=== PATIENT | female | born 1980 | race Two or more races ===

== ENCOUNTER 2020-02-15 15:58 | Inpatient (IN) | payer OTHER ==
[2020-02-15 18:30] VITALS: BMI 16.7
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
[2020-02-15] MEDS ORDERED: MENTHOL/PHENOL 1 EACH UD MM PRN (20:10)
[2020-02-15] MEDS ORDERED: ACETAMINOPHEN 325 MG TABLET (FP) PO PRN ×2 (20:10)
[2020-02-15] MEDS ORDERED: MAGNESIUM HYDROX 2400MG/30ML ORAL SUSPENSION 30 ML CUP PO PRN (20:10)
[2020-02-15] MEDS ORDERED: ONDANSETRON *ODT* 4 MG TABLET SL ONE (20:10)
[2020-02-15] MEDS ORDERED: BISMUTH SUBSALICYLATE 524 MG/30 ML UD PO PRN (20:10)
[2020-02-15] MEDS ORDERED: MAG HYDROX/AL HYDROX/SIMETH 30 ML UNIT-DOSE CUP PO PRN (20:10)
[2020-02-15] MEDS ORDERED: chlordiazePOXIDE HCL 10 MG CAPSULE PO PRN (20:10)
[2020-02-15] MEDS ORDERED: METHOCARBAMOL 500 MG TABLET PO PRN (20:10)
[2020-02-15] MEDS ORDERED: MAGNESIUM CITRATE 300 ML BOTTLE PO PRN (20:10)
[2020-02-15] MEDS ORDERED: IBUPROFEN 400 MG TABLET (FP) PO PRN (20:10)
--- NOTE | 2020-02-15 23:01 | PN ---
S Progress Note Note: b/p 140/100 p- 109 o2 sat 96% on 8l nc Patient is a 39 year old transgender female with a significant past medical history of hypertension, alcohol related seizures, anemia, GERD and psych/depression, who is admitted for alcohol detox to [facility], with grand mal seizure while waiting transfer to unit fell, and hit his/her head. patient status post witnessed grand mal seizure. fell from standing position. tonic, clonic contractions noted for approx 2 min. loc noted. supportive care provided, o2 nc 911 initiated post ictal observation awake confused trauma to right side of face, hematoma, lac to right brow and cheek.bleeding from mouth client transferred to [facility] for eval.
[2020-02-16] MEDS ORDERED: chlordiazePOXIDE HCL 25 MG CAPSULE PO PRN (07:12)
[2020-02-16] MEDS ORDERED: cloNIDine HCL 0.1 MG TABLET PO PRN (07:24)
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
[2020-02-16] MEDS: PRENATAL VITAMINS W/ FOLIC ACID TABLET (FP) PO SCH (11:07)
[2020-02-16] MEDS: chlordiazePOXIDE HCL 25 MG CAPSULE PO SCH ×5 (11:07→22:39)
--- NOTE | 2020-02-16 11:36 | EKG ---
Test Reason : Blood Pressure : / mmHG Vent. Rate : 103 BPM Atrial Rate : 103 BPM P-R Int : 134 ms QRS Dur : 080 ms QT Int : 372 ms P-R-T Axes : 059 055 062 degrees QTc Int : 487 ms SINUS TACHYCARDIA OTHERWISE NORMAL ECG NO PREVIOUS ECGS AVAILABLE Confirmed by JOHNSON MAN MD ([id number]) on 02/16/2020 11:36:11 AM Referred By: Confirmed By:JOHNSON MAN MD
[2020-02-16 11:38] LABS: HEMOGLOBIN 11.2 GM/dL (10.7-15.3); MCH 24.5 pg (25.7-33.7); MEAN CELL VOLUME 79.1 fl (80-96); MEAN PLT VOLUME 10.6 fl (7.5-11.1); PLATELET COUNT 102 K/MM3 (134-434); RBC 4.55 M/mm3 (3.60-5.2); WHITE BLOOD COUNT 4.4 K/mm3 (4.0-10.0)
[2020-02-16 11:53] LABS: ALBUMIN 3.7 g/dl (3.4-5.0); BILIRUBIN,TOTAL 1.4 mg/dL (0.2-1); BLOOD UREA NITROGEN 5.2 mg/dL (7-18); CREATININE 0.5 mg/dL (0.55-1.3); POTASSIUM 3.5 mmol/L (3.5-5.1); TOT PROT 7.5 g/dl (6.4-8.2)
--- NOTE | 2020-02-16 12:49 | PN ---
S Progress Note Note: Psychiatry Attending's note : Bedside visit. Patient asleep. Examination deferred. Until patient awakens. Will follow.
--- NOTE | 2020-02-16 12:53 | PN ---
S CIWA - CIWA Score Nausea/Vomitin-No Nausea/No Vomiting Muscle Tremors: 3 Anxiety: 3 Agitation: 2 Paroxysmal Sweats: 2 Orientation: 0-Oriented Tacttile Disturbances: 0-None Auditory Disturbances: 0-None Visual Disturbances: 0-None Headache: 3-Moderate CIWA-Ar Total Score: 13 S Progress Note (SOAP) Subjective: Complaints of headache, sweats, tremors and anxiety. Objective: 02/16/20 12:47 Vital Signs 02/16/20 02/16/20 02/16/20 07:07 07:08 09:04 Temperature 97.3 F L 97.2 F L Pulse Rate 91 H 82 Respiratory 16 18 Rate Blood Pressure 136/98 133/83 O2 Sat by Pulse 98 Oximetry (%) 02/16/20 02/16/20 09:06 11:00 Temperature 98.0 F 97.0 F L Pulse Rate 102 H 84 Respiratory 18 20 Rate Blood Pressure 133/83 126/74 O2 Sat by Pulse Oximetry (%) Laboratory Last Values WBC 4.4 K/mm3 (4.0-10.0) 02/16/20 07:55 RBC 4.55 M/mm3 (3.60-5.2) 02/16/20 07:55 Hgb 11.2 GM/dL (10.7-15.3) 02/16/20 07:55 Hct 36.0 % (32.4-45.2) 02/16/20 07:55 MCV 79.1 fl (80-96) L 02/16/20 07:55 MCH 24.5 pg (25.7-33.7) L 02/16/20 07:55 MCHC 31.0 g/dl (32.0-36.0) L 02/16/20 07:55 RDW 23.0 % (11.6-15.6) H 02/16/20 07:55 Plt Count 102 K/MM3 (134-434) L D 02/16/20 07:55 MPV 10.6 fl (7.5-11.1) 02/16/20 07:55 Sodium 138 mmol/L (136-145) 02/16/20 07:55 Potassium 3.5 mmol/L (3.5-5.1) 02/16/20 07:55 Chloride 101 mmol/L (98-107) 02/16/20 07:55 Carbon Dioxide 26 mmol/L (21-32) 02/16/20 07:55 Anion Gap 10 MMOL/L (8-16) 02/16/20 07:55 BUN 5.2 mg/dL (7-18) L 02/16/20 07:55 Creatinine 0.5 mg/dL (0.55-1.3) L 02/16/20 07:55 Est GFR (CKD-EPI)AfAm 140.31 02/16/20 07:55 Est GFR (CKD-EPI)NonAf 121.06 02/16/20 07:55 Random Glucose 73 mg/dL (74-106) L 02/16/20 07:55 Calcium 9.0 mg/dL (8.5-10.1) 02/16/20 07:55 Total Bilirubin 1.4 mg/dL (0.2-1) H 02/16/20 07:55 AST 52 U/L (15-37) H 02/16/20 07:55 ALT 29 U/L (13-61) 02/16/20 07:55 Alkaline Phosphatase 85 U/L (45-117) 02/16/20 07:55 Total Protein 7.5 g/dl (6.4-8.2) 02/16/20 07:55 Albumin 3.7 g/dl (3.4-5.0) 02/16/20 07:55 POC Urine HCG, Qual Negative 02/16/20 08:40 Syphilis Serology Non-reactive (NONREACTIVE) 02/16/20 07:55 Labs reviewed. Assessment: 02/16/20 12:48 Alert and oriented x 3, in no acute respiratory distress. Swelling to right facial with right eye juan orbital ecchymosis. Withdrawal symptoms. Plan: Fall precautions. Continue detox protocol.
[2020-02-16] MEDS ORDERED: TUBERCULIN PPD 5 TU/0.1ML SYRINGE (IN PATIENT USE ONLY) ID ONE (14:46)
[2020-02-16] MEDS: MELATONIN 5 MG TABLETS PO SCH ×2 (16:47→22:38)
[2020-02-16] MEDS: THIAMINE HCL 100 MG TABLET (FP) PO SCH ×2 (16:47→22:38)
[2020-02-16] MEDS ORDERED: MASKS NR ONE (17:00)
[2020-02-16] MEDS: hydrOXYzine PAMOATE 25 MG CAPSULE (FP) PO PRN ×2 (17:48→22:39)
[2020-02-16] MEDS ORDERED: BACITRACIN 0.9 GM PACKET ONE (22:39)
[2020-02-16] MEDS: BACITRACIN 15 GM TUBE TOPICAL OINTMENT TP SCH (22:40)
[2020-02-17] MEDS ORDERED: chlordiazePOXIDE 5 MG CAPSULE PO SCH (05:00)
[2020-02-17] MEDS: chlordiazePOXIDE HCL 25 MG CAPSULE PO SCH ×4 (06:04→23:14)
[2020-02-17] MEDS: PRENATAL VITAMINS W/ FOLIC ACID TABLET (FP) PO SCH (10:35)
[2020-02-17] MEDS: BACITRACIN 15 GM TUBE TOPICAL OINTMENT TP SCH ×2 (10:35→23:17)
--- NOTE | 2020-02-17 14:46 | PN ---
S CIWA - CIWA Score Nausea/Vomitin-Mild Nausea/No Vomiting Muscle Tremors: 2 Anxiety: 3 Agitation: 3 Paroxysmal Sweats: 3 Orientation: 0-Oriented Tacttile Disturbances: 0-None Auditory Disturbances: 0-None Visual Disturbances: 0-None Headache: 0-None Present CIWA-Ar Total Score: 12 S Progress Note (SOAP) Subjective: Anxious. Noted with sutures below right eye (cheek area), stated he had a seizure while drinking alcohol prior to coming here (alcohol related seizure) and that he fell hitting his face. Also has sutures to inner upper right lip (self dissolving); sutures under right eye to be removed in 7 days as per patient. Objective: 02/17/20 14:42 Last Vital Signs Temp Pulse Resp BP Pulse Ox 97.3 F L 113 H 19 140/92 99 02/17/20 12:33 02/17/20 12:33 02/17/20 12:33 02/17/20 12:33 02/17/20 12:33 Elevated b/p: has htn, on clonidine prn Face: sutures under right eye at laceration site (cheek area, c/d/i) apply bacitracin bid as ordered Upper right lip moderately swollen, dissolving sutures to inner upper of top lip Laboratory Tests 02/15/20 02/16/20 02/16/20 22:00 07:55 07:55 WBC 4.4 RBC 4.55 Hgb 11.2 Hct 36.0 MCV 79.1 L MCH 24.5 L MCHC 31.0 L RDW 23.0 H Plt Count 102 L D MPV 10.6 Sodium Potassium Chloride Carbon Dioxide Anion Gap BUN Creatinine Est GFR (CKD-EPI)AfAm Est GFR (CKD-EPI)NonAf Random Glucose Calcium Total Bilirubin AST ALT Alkaline Phosphatase Total Protein Albumin POC Urine HCG, Qual Syphilis Serology Non-reactive COVID-19 (CR[facility]STAL) Not detected 02/16/20 02/16/20 07:55 08:40 WBC RBC Hgb Hct MCV MCH MCHC RDW Plt Count MPV Sodium 138 Potassium 3.5 Chloride 101 Carbon Dioxide 26 Anion Gap 10 BUN 5.2 L Creatinine 0.5 L Est GFR (CKD-EPI)AfAm 140.31 Est GFR (CKD-EPI)NonAf 121.06 Random Glucose 73 L Calcium 9.0 Total Bilirubin 1.4 H AST 52 H ALT 29 Alkaline Phosphatase 85 Total Protein 7.5 Albumin 3.7 POC Urine HCG, Qual Negative Syphilis Serology COVID-19 (CRYSTAL) Labs reviewed: plt 102 (low), AST 52 (high), total bilirubin 1.4 (high) Assessment: 02/17/20 14:46 Withdrawal sxs Noted with HTN, laceration under right eye, elevated LFTs and thrombocytopenia Plan: Continue detox Encouraged PO water intake HTN: not on standing medication, on clonidine prn, follow up with PCP post discharge for management Laceration under right eye: has sutures intact, to be removed 7 days after placement, patient stated he will have it removed at his longterm if he's discharged before the 7 days removal date, continue bacitracin bid Elevated LFTs: most likely due to alcoholism, repeat AST, total bilirubin Thrombocytopenia: most likely due to alcoholism, encouraged abstinence, encouraged inpatient rehab, follow up with PCP for monitoring
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
[2020-02-17] MEDS: hydrOXYzine PAMOATE 25 MG CAPSULE (FP) PO PRN (17:28)
[2020-02-17] MEDS: MELATONIN 5 MG TABLETS PO SCH (23:14)
[2020-02-17] MEDS: THIAMINE HCL 100 MG TABLET (FP) PO SCH (23:14)
[2020-02-18] MEDS ORDERED: chlordiazePOXIDE HCL 10 MG CAPSULE PO PRN
[2020-02-18] MEDS ORDERED: chlordiazePOXIDE HCL 10 MG CAPSULE PO SCH (05:00)
[2020-02-18] MEDS ORDERED: chlordiazePOXIDE HCL 25 MG CAPSULE PO SCH (05:00)
[2020-02-18 09:12] VITALS: BP 116/56; PULSE 83; TEMP 98.8
--- NOTE | 2020-02-18 09:56 | PN ---
S Progress Note Note: pt did not want to stay to complete her detox. Pt states I want to go get my man and go to my intermediate. Pt left with right eye black/blue around the juan-orbital area, sutures in place and swelling to right eyebrow. Pt was made aware of a chance for relapse, seizure , DT, OD and or loss, pt chose to sign out AMA.
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
[2020-02-18 11:26] LABS: BILIRUBIN,TOTAL 0.4 mg/dL (0.2-1)
[2020-02-19] MEDS ORDERED: chlordiazePOXIDE HCL 10 MG CAPSULE PO PRN
[2020-02-19] MEDS ORDERED: chlordiazePOXIDE HCL 10 MG CAPSULE PO SCH (05:00)
[2020-02-19] MEDS ORDERED: chlordiazePOXIDE HCL 10 MG CAPSULE PO ONE (05:00)
[2020-02-20] MEDS ORDERED: chlordiazePOXIDE HCL 10 MG CAPSULE PO SCH (05:00)
[2020-02-21] MEDS ORDERED: chlordiazePOXIDE HCL 10 MG CAPSULE PO ONE (05:00)
== END 2020-02-18 09:52 | disposition left against medical advice (07) | DRG 770 ==
LOC: YASAS 15:58 → Y6N 20:41
PROVIDERS: ADMIT Allergy & Immunology; ATTEND Allergy & Immunology
PROC: HZ2ZZZZ Detoxification Services for Substance Abuse Treatment (ICD-10-PCS; principal; 2020-02-15)
DX: F10.230 Alcohol dependence with withdrawal, uncomplicated (principal); F10.24 Alcohol dependence with alcohol-induced mood disorder; F17.211 Nicotine dependence, cigarettes, in remission; F32.9 Major depressive disorder, single episode, unspecified; F64.0 Transsexualism; D69.6 Thrombocytopenia, unspecified; E83.42 Hypomagnesemia; D64.9 Anemia, unspecified; K21.9 Gastro-esophageal reflux disease without esophagitis; G40.509 Epileptic seizures related to external causes, not intractable, without status epilepticus; I10 Essential (primary) hypertension; R94.5 Abnormal results of liver function studies; S09.93XD Unspecified injury of face, subsequent encounter; S01.511D Laceration without foreign body of lip, subsequent encounter; S01.411D Laceration without foreign body of right cheek and temporomandibular area, subsequent encounter; S01.111D Laceration without foreign body of right eyelid and periocular area, subsequent encounter; W18.39XD Other fall on same level, subsequent encounter
CPT/HCPCS: 36415; 80053; 81025; 82247; 84450; 85027; 86780; 93005; 93010; J0735; U0003

== ENCOUNTER 2020-02-15 23:14 | Emergency (ER) | payer OTHER ==
[2020-02-15 23:22] VITALS: TEMP 97.8; BMI 14.5
--- NOTE | 2020-02-15 23:52 | PDOC ---
History of Present Illness - General Chief Complaint: Seizure Stated Complaint: SEIZURE Time Seen by Provider: 02/15/20 23:26 - History of Present Illness Initial Comments: 02/15/20 23:52 HPI: 39 y/o F with hx of HLD and alcohol abuse c/b withdrawal seizures BIBEMS from [facility] for seizure while in detox. She reports no aura and cannot remember the event. Sustained head trauma and facial trauma. Currently reports head pain and pain at lacerations. Also reports chest pain and SOB from anxiety which has been present for several weeks. Denies abd pain, n/v. PMHx: as noted above ROS: as noted SHx: Denies tobacco use; +alcohol use; no rec drugs Allergies: NKDA ROS: GENERAL/CONSTITUTIONAL: No fever or chills. +gen weakness. HEAD, EYES, EARS, NOSE AND THROAT: No change in vision. No ear pain or discharge. No sore throat. CARDIOVASCULAR: +chest pain and shortness of breath RESPIRATORY: No cough, wheezing, or hemoptysis. GASTROINTESTINAL: No nausea, vomiting, diarrhea or constipation. GENITOURINARY: No dysuria, frequency, or change in urination. MUSCULOSKELETAL: No joint or muscle swelling or pain. No neck or back pain. SKIN: No rash NEUROLOGIC: +headache; no vertigo, loss of consciousness, or change in strength /sensation. ENDOCRINE: No increased thirst. No abnormal weight change HEMATOLOGIC/LYMPHATIC: No anemia, easy bleeding, or history of blood clots. ALLERGIC/IMMUNOLOGIC: No hives or skin allergy. PE: GENERAL: Awake, alert, and fully oriented, mild acute distress HEAD: right periorbital edema and ecchymosis with 1cm brow lac; 2cm right cheek lac and edema, and right upper lip intraoral lac with lip edema EYES: EOMI, sclera anicteric, conjunctiva clear ENT: Auricles normal inspection, hearing grossly normal, nares patent, oropharynx clear without exudates. dry mucosa, tongue fasiculations NECK: Normal ROM, no lymphadenopathy, no midline ttp LUNGS: No increased work of breathing, symmetrical chest rise, clear to auscultation bilaterally, no wheezes, crackles or rhonchi HEART: Regular rate, regular rhythm, normal S1 and S2, no murmur, peripheral pulses 2+ and equal bilaterally. ABDOMEN: Soft, nondistended, nontender. No guarding, no rebound. No masses. No CVAT MUSCULOSKELETAL: FROM NEUROLOGICAL: Cranial nerves II through XII grossly intact. Normal speech, gait stable, no focal sensorimotor deficits SKIN: Warm, Dry, normal turgor, no rashes or lesions noted Past History - Medical History Allergies/Adverse Reactions: Allergies Allergy/AdvReac Type Severity Reaction Status Date / Time No Known Allergies Allergy Verified 02/15/20 23:22 Anemia: No Asthma: No Cancer: No Cardiac Disorders: No CVA: No COPD: No CHF: No Dementia: No Diabetes: No GI Disorders: Yes (GERD) Disorders: No HTN: Yes Hypercholesterolemia: No Kidney Stones: No Liver Disease: No Seizures: Yes (Alcohol related seizures) Thyroid Disease: No - Surgical History Abdominal Surgery: No Appendectomy: No Cardiac Surgery: No Cholecystectomy: No Lung Surgery: No Neurologic Surgery: No Orthopedic Surgery: No - Psycho-Social/Smoking History Smoking History: Never smoked Have you smoked in the past 12 months: No - Substance Abuse Hx (Audit-C & DAST Scrn) How often the patient has a drink containing alcohol: 4 0r more times/wk How often the patient has six or more drinks on one occasion: Daily or almost daily Score: In Men: 4 or > Positive; In Women: 3 or > Positive: 8 Screen Result (Pos requires Nsg. Audit-10AR): Positive *Physical Exam - Vital Signs Last Vital Signs Temp Pulse Resp BP Pulse Ox 97.8 F 108 H 18 140/108 H 02/15/20 23:19 02/15/20 23:19 02/15/20 23:19 02/15/20 23:19 Procedures - Laceration/Wound Repair Right Cheek Wound Length: to 2.5 cm Wound Explored: clean, no foreign body present Wound's Depth, Shape: superficial, linear Irrigated w/ Saline: Yes Betadine Prep: No Anesthesia: 1% Lidocaine Amount of Anesthetic (ccs): 3 Wound Debrided: moderate Wound Repaired With: Sutures Suture Size/Type: 5:0, nylon Number of Sutures: 7 Layer Closure: No Right Lip Wound Length: to 2.5 cm Wound Explored: clean Wound's Depth, Shape: superficial Anesthesia: 1% Lidocaine Wound Debrided: minimal Wound Repaired With: Sutures Suture Size/Type: 5:0, other (absorbeable) Number of Sutures: 4 Right Upper Eye Wound Length: to 2.5 cm Wound Explored: clean, no foreign body present Wound's Depth, Shape: superficial, linear Anesthesia: 1% Lidocaine Wound Repaired With: Dermabond ED Treatment Course - LABORATORY CBC & Chemistry Diagram: 02/16/20 01:05 02/16/20 01:05 - RADIOLOGY Radiology Studies Ordered: Category Date Time Status CERVICAL SPINE CT W/O CONTR [CT] Stat CT Scan 02/15/20 23:[address] W/O CONTRAST [CT] Stat CT Scan 02/15/20 23:[address] WITHOUT CONTRAST [CT] Stat CT Scan 02/15/20 23:32 Ordered Medical Decision Making - Medical Decision Making 02/16/20 04:37 39 y/o F with hx of HLD and alcohol abuse c/b withdrawal seizures BIBEMS from [facility] for seizure while in detox, sustaining head trauma, facial trauma and right brow, right cheek, and right lip lac. VSS, AF. PE see above -CT head, CT c spine, CT face -cbc, cmp, card prof, mg, coags, ekg -librium, po hydration -reassess 02/16/20 04:38 low mag, will replete CT all negative with no fx or bleeds s/p suture repairs gait stable will DC to [facility] Discharge - Discharge Information Problems reviewed: Yes Clinical Impression/Diagnosis: Seizure, Facial trauma, Hypomagnesemia Condition: Stable Disposition: HOME - Follow up/Referral - Patient Discharge Instructions Patient Printed Discharge Instructions: DI for Closed Head Injury, DI for Drug or Alcohol Withdrawal Additional Instructions: Additional Instructions: Please return to the emergency department with any new or worsening symptoms or concerns. Please follow up with your primary care physician within 72 hours. - Post Discharge Activity
[2020-02-15] MEDS ORDERED: ACETAMINOPHEN 500 MG TABLET (FP) PO ONE (23:55)
--- NOTE | 2020-02-16 00:03 | PDOC ---
*Physical Exam - Vital Signs Last Vital Signs Temp Pulse Resp BP Pulse Ox 97.8 F 108 H 18 140/108 H 02/15/20 23:19 02/15/20 23:19 02/15/20 23:19 02/15/20 23:19 ED Treatment Course - LABORATORY CBC & Chemistry Diagram: 02/16/20 01:05 02/16/20 01:05 Medical Decision Making - Medical Decision Making 02/16/20 04:57 Patient Name: VENKAT GARCIA THIS IS A PRELIMINARY REPORT FROM [facility] DATE OF SERVICE: 2020-02-16 01:33:52 IMAGES: [id number] EXAM: HEAD CT WITHOUT CONTRAST HISTORY: Trauma COMPARISON: None. FINDINGS: No evidence of hemorrhage, acute territorial infarction, mass effect, midline shift, hydrocephalus, or extra-axial collections. No hyperdense arterial or venous sign Mild right maxillary sinus mucoperiosteal thickening There is right frontal/periorbital and left occipital soft tissue swelling. The calvarium is intact. IMPRESSION: 1. No acute intracranial pathology 2. No skull fracture Patient Name: VENKAT GARCIA THIS IS A PRELIMINARY REPORT FROM [facility] DATE OF SERVICE: 2020-02-16 01:29:32 IMAGES: [id number] EXAM: CERVICAL SPINE CT W/O CONTR HISTORY: Trauma COMPARISON: None. FINDINGS: No fractures or jumped facets Mild retrolisthesis of C5 on C6 that is likely degenerative in nature Disc space narrowing and anterior osteophytosis at C5-C6 The prevertebral and paravertebral soft tissues are unremarkable. The lung apices are clear. IMPRESSION: 1. No acute cervical spine injury 02/16/20 05:00 Patient Name: VENKAT GARCIA THIS IS A PRELIMINARY REPORT FROM [facility] DATE OF SERVICE: 2020-02-16 01:32:06 IMAGES: [id number] EXAM: FACIAL BONES CT W/O CONTRAST HISTORY: Trauma COMPARISON: None. FINDINGS: Right frontal/periorbital and right juan-maxillary soft tissue swelling No acute facial fractures No evidence of orbital globe rupture, optic lens dislocation, or retrobulbar hemorrhage Mild right maxillary sinus mucoperiosteal thickening The remaining visualized paranasal sinuses, mastoid air cells, and middle ear cavities are well pneumatized and clear The skull base and temporomandibular joints are intact. IMPRESSION: 1. No acute facial fractures or orbital injury 02/16/20 06:02 Pt is stable to return to [facility]; she will be taken by EMS Discharge - Discharge Information Problems reviewed: Yes Clinical Impression/Diagnosis: Seizure, Facial trauma, Hypomagnesemia Condition: Stable Disposition: HOME - Follow up/Referral - Patient Discharge Instructions Patient Printed Discharge Instructions: DI for Closed Head Injury, DI for Drug or Alcohol Withdrawal Additional Instructions: Additional Instructions: Please return to the emergency department with any new or worsening symptoms or concerns. Please follow up with your primary care physician within 72 hours. - Post Discharge Activity
[2020-02-16] MEDS ORDERED: DIPHTH,PERTUSS(ACELL),TET 0.5 ML DISP.SYRIN IM ONE ×2 (00:09→00:15)
--- NOTE | 2020-02-16 00:09 | PDOC ---
Documentation entered by Tiffany Foster SCRIBE, acting as scribe for Elidia Dean MD. Elidia Dean MD: This documentation has been prepared by the scribe, Tiffany Foster SCRIBE, under my direction and personally reviewed by me in its entirety. I confirm that the documentation accurately reflects all work, treatment, procedures, and medical decision making performed by me. Attending Attestation - Resident Resident Name: Herbert Lagos - ED Attending Attestation I have performed the following: I have examined & evaluated the patient, The case was reviewed & discussed with the resident, I agree w/resident's findings & plan, Exceptions are as noted - HPI HPI: 02/15/20 23:56 Patient is a 39 year old transgender female with a significant past medical history of hypertension, alcohol related seizures, anemia, GERD and psych/depression, who presents to the ED, from [facility], with a seizure from earlier today. Patient was at [facility] for alcohol detox where he/she had a seizure, fell, and hit his/her head. Patient denies: Allergies: NKDA Patient is unemployed and lives in a [facility]. - Physicial Exam PE: 02/15/20 23:56 General: +Post ictal and confused HEENT: +Right upper eyelid 1cm laceration. +Upper eyelid ecchymosis and swelling. +Right cheek 2cm linear laceration and swelling, tenderness to palpation. +Tongue lacerations. +Right inner upper lip 1cm SQ laceration. Dentition intact. Neck: +Old trach site. Neck supple, FROM Resp: CTAB, normal and even respirations, no respiratory distress CVS: RRR, no murmurs, 2+ peripheral pulses throughout, no peripheral edema Abdomen: soft, NTND, no rebound or guarding. Back: nontender, normal inspection and ROM MSK: no edema, ORTIZ x4, ROM intact. No clubbing or cyanosis. normal bulk and tone. Neuro: +Post ictal and confused. Psych: Calm and cooperative Skin: warm and well perfused, cap refill <2 sec, normal color 02/15/20 23:58 - Medical Decision Making 02/16/20 00:08 Vital Signs Temp Pulse Resp BP Pulse Ox 97.8 F 108 H 18 140/108 H 02/15/20 23:19 02/15/20 23:19 02/15/20 23:19 02/15/20 23:19 Vital signs reviewed, afebrile, hypertensive and tachycardic likely due to her trauma and facial injury Neurologic intact, however mildly postictal after her grand mal seizure. No other traumatic injuries are noted on secondary survey Differential diagnosis includes ICH, SDH, ED H, cervical spine injury/fracture, facial bone fracture, orbital fracture, seizure, anemia/electrolyte/metabolic derangements Patient to be given Librium for early alcohol withdrawal CT head, C-spine and facial series to evaluate for traumatic injury/bleed Tetanus indicated given her facial lacerations. See procedure note by resident for laceration repairs Reevaluate ultimate disposition, signed out to Dr. Bashir palomo attending pending Discharge - Discharge Information Problems reviewed: Yes Clinical Impression/Diagnosis: Seizure, Facial trauma, Hypomagnesemia Condition: Stable Disposition: TRANSFER ACUTE CARE/OTHER HOSP - Follow up/Referral - Patient Discharge Instructions Patient Printed Discharge Instructions: DI for Closed Head Injury, DI for Drug or Alcohol Withdrawal Additional Instructions: Additional Instructions: Please return to the emergency department with any new or worsening symptoms or concerns. Please follow up with your primary care physician within 72 hours. - Post Discharge Activity
[2020-02-16] MEDS ORDERED: ACETAMINOPHEN 325 MG TABLET (FP) ONE (00:14)
[2020-02-16] MEDS ORDERED: chlordiazePOXIDE HCL 25 MG CAPSULE PO ONE ×2 (01:20→05:14)
[2020-02-16 01:33] LABS: BASO % 1.6 % (0-2.0); EOS % 1.7 % (0-4.5); HEMOGLOBIN 10.1 GM/dL (10.7-15.3); LYMPH % 31.1 % (8-40); MCH 24.1 pg (25.7-33.7); MCHC 30.6 g/dl (32.0-36.0); MEAN CELL VOLUME 78.8 fl (80-96); MEAN PLT VOLUME 9.8 fl (7.5-11.1); MONO % 7.3 % (3.8-10.2); NEUT % 58.3 % (42.8-82.8); PLATELET COUNT 132 K/MM3 (134-434); RBC 4.18 M/mm3 (3.60-5.2); RDW 23.3 % (11.6-15.6); WHITE BLOOD COUNT 3.8 K/mm3 (4.0-10.0)
[2020-02-16] MEDS ORDERED: chlordiazePOXIDE HCL 25 MG CAPSULE ONE ×2 (01:43→05:15)
[2020-02-16 02:09] LABS: ALBUMIN 3.7 g/dl (3.4-5.0); ALK PHOS 87 U/L (45-117); ANION GAP 9 MMOL/L (8-16); BILIRUBIN,TOTAL 0.8 mg/dL (0.2-1); BLOOD UREA NITROGEN 5.8 mg/dL (7-18); CALCIUM 8.7 mg/dL (8.5-10.1); CHLORIDE 101 mmol/L (98-107); CO2 26 mmol/L (21-32); CREATININE 0.6 mg/dL (0.55-1.3); GLUCOSE,RANDOM 93 mg/dL (74-106); MAGNESIUM 1.4 mg/dL (1.8-2.4); POTASSIUM 4.7 mmol/L (3.5-5.1); SGOT/AST 85 U/L (15-37); SGPT/ALT 32 U/L (13-61); SODIUM 136 mmol/L (136-145); TOT PROT 7.8 g/dl (6.4-8.2)
[2020-02-16] MEDS ORDERED: MAGNESIUM SULF 50% (8.12 MEQ/2 ML-1 GM VIAL) IVPB ONE (03:05)
[2020-02-16] MEDS ORDERED: MAGNESIUM SULF 50% (8.12 MEQ/2 ML-1 GM VIAL) ONE (03:09)
[2020-02-16 05:22] VITALS: BP 147/106; PULSE 98
--- NOTE | 2020-02-16 11:35 | EKG ---
Test Reason : Blood Pressure : / mmHG Vent. Rate : 095 BPM Atrial Rate : 095 BPM P-R Int : 138 ms QRS Dur : 078 ms QT Int : 390 ms P-R-T Axes : 047 036 043 degrees QTc Int : 490 ms NORMAL SINUS RHYTHM PROLONGED QT ABNORMAL ECG WHEN COMPARED WITH ECG OF 15-FEB-2020 20:11, NO SIGNIFICANT CHANGE WAS FOUND Confirmed by JOHNSON MAN MD ([id number]) on 02/16/2020 11:34:54 AM Referred By: Confirmed By:JOHNSON MAN MD
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
== END 2020-02-16 06:34 | disposition short-term general hospital (02) ==
LOC: JER 23:14
PROC: 08QNXZZ Repair Right Upper Eyelid, External Approach (ICD-10-PCS; principal; 2020-02-15)
PROC: 0CQ03ZZ Repair Upper Lip, Percutaneous Approach (ICD-10-PCS; 2020-02-15)
PROC: 0JQ10ZZ Repair Face Subcutaneous Tissue and Fascia, Open Approach (ICD-10-PCS; 2020-02-15)
PROC: 3E0234Z Introduction of Serum, Toxoid and Vaccine into Muscle, Percutaneous Approach (ICD-10-PCS; 2020-02-15)
DX: R56.9 Unspecified convulsions (principal); S09.93XA Unspecified injury of face, initial encounter; E83.42 Hypomagnesemia
CPT/HCPCS: 36415; 70450-TC; 70486-TC; 72125-TC; 80053; 82550; 82553; 83735; 84484; 85025; 90715; 93005; 93010; 99285-25

== ENCOUNTER 2021-01-06 15:38 | Inpatient (IN) | payer OTHER ==
[2021-01-06] MEDS ORDERED: MAGNESIUM HYDROX 2400MG/30ML ORAL SUSPENSION 30 ML CUP PO PRN (16:46)
[2021-01-06] MEDS ORDERED: MAGNESIUM CITRATE 300 ML BOTTLE PO PRN (16:46)
[2021-01-06] MEDS ORDERED: ONDANSETRON *ODT* 4 MG TABLET SL PRN (16:46)
[2021-01-06] MEDS ORDERED: BISMUTH SUBSALICYLATE 524 MG/30 ML PO PRN (16:46)
[2021-01-06] MEDS ORDERED: NICOTINE POLACRILEX 2 MG GUM BUC PRN (16:46)
[2021-01-06] MEDS ORDERED: ACETAMINOPHEN 325 MG TABLET (FP) PO PRN ×2 (16:46)
[2021-01-06] MEDS ORDERED: MAG HYDROX/AL HYDROX/SIMETH 30 ML UNIT-DOSE CUP PO PRN (16:46)
[2021-01-06] MEDS ORDERED: MENTHOL/PHENOL 1 EACH UD MM PRN (16:46)
[2021-01-06] MEDS ORDERED: diazePAM 5 MG TABLET PO SCH (17:00)
[2021-01-06] MEDS ORDERED: diazePAM 5 MG TABLET ONE (17:18)
[2021-01-06] MEDS: diazePAM 5 MG TABLET PO SCH ×2 (17:20→22:29)
[2021-01-06] MEDS: hydrOXYzine PAMOATE 25 MG CAPSULE (FP) PO SCH ×2 (18:34→22:28)
[2021-01-06 19:45] VITALS: BMI 20.1
[2021-01-06] MEDS: IBUPROFEN 400 MG TABLET (FP) PO PRN (22:26)
[2021-01-06] MEDS: METHOCARBAMOL 500 MG TABLET PO PRN (22:27)
[2021-01-06] MEDS: MELATONIN 5 MG TABLETS PO SCH (22:27)
[2021-01-06] MEDS: THIAMINE HCL 100 MG TABLET (FP) PO SCH (22:28)
[2021-01-07] MEDS: diazePAM 5 MG TABLET PO SCH ×4 (06:20→22:26)
[2021-01-07] MEDS: hydrOXYzine PAMOATE 25 MG CAPSULE (FP) PO SCH ×5 (06:21→22:26)
[2021-01-07] MEDS: PRENATAL VITAMINS W/ FOLIC ACID TABLET (FP) PO SCH (10:01)
[2021-01-07 10:03] LABS: HEMATOCRIT 34.9 % (32.4-45.2); MCH 24.8 pg (25.7-33.7); MCHC 31.7 g/dl (32.0-36.0); MEAN CELL VOLUME 78.3 fl (80-96); MEAN PLT VOLUME 9.2 fl (7.5-11.1); PLATELET COUNT 109 K/MM3 (134-434); RBC 4.45 M/mm3 (3.60-5.2); RDW 22.2 % (11.6-15.6)
[2021-01-07 10:08] LABS: ALBUMIN 3.2 g/dl (3.4-5.0); CALCIUM 8.5 mg/dL (8.5-10.1); TOT PROT 7.1 g/dl (6.4-8.2)
[2021-01-07 10:09] LABS: BLOOD UREA NITROGEN 4.7 mg/dL (7-18)
[2021-01-07 10:12] LABS: CREATININE 0.5 mg/dL (0.55-1.3)
[2021-01-07] MEDS: MELATONIN 5 MG TABLETS PO SCH (22:26)
[2021-01-07] MEDS: THIAMINE HCL 100 MG TABLET (FP) PO SCH (22:26)
[2021-01-07] MEDS: IBUPROFEN 400 MG TABLET (FP) PO PRN (23:08)
[2021-01-08] MEDS: diazePAM 5 MG TABLET PO SCH ×3 (05:54→22:14)
[2021-01-08] MEDS: hydrOXYzine PAMOATE 25 MG CAPSULE (FP) PO SCH ×2 (05:54→10:38)
[2021-01-08] MEDS: diazePAM 5 MG TABLET PO PRN (10:38)
[2021-01-08] MEDS: PRENATAL VITAMINS W/ FOLIC ACID TABLET (FP) PO SCH (10:38)
[2021-01-08] MEDS: MELATONIN 5 MG TABLETS PO SCH (22:14)
[2021-01-08] MEDS: THIAMINE HCL 100 MG TABLET (FP) PO SCH (22:14)
[2021-01-08] MEDS: METHOCARBAMOL 500 MG TABLET PO PRN (22:14)
[2021-01-09] MEDS: diazePAM 5 MG TABLET PO SCH ×2 (06:09→17:31)
[2021-01-09] MEDS: PRENATAL VITAMINS W/ FOLIC ACID TABLET (FP) PO SCH (10:35)
[2021-01-09] MEDS: METHOCARBAMOL 500 MG TABLET PO PRN (10:36)
[2021-01-09] MEDS: diazePAM 5 MG TABLET PO PRN (10:36)
[2021-01-09 11:22] LABS: HEMATOCRIT 35.8 % (32.4-45.2); HEMOGLOBIN 11.1 GM/dL (10.7-15.3); MCH 24.8 pg (25.7-33.7); MEAN PLT VOLUME 10.1 fl (7.5-11.1); RBC 4.47 M/mm3 (3.60-5.2); RDW 22.2 % (11.6-15.6); WHITE BLOOD COUNT 4.9 K/mm3 (4.0-10.0)
[2021-01-09 11:39] LABS: ALBUMIN 3.4 g/dl (3.4-5.0); CALCIUM 9.3 mg/dL (8.5-10.1)
[2021-01-09 11:43] LABS: CREATININE 0.5 mg/dL (0.55-1.3)
[2021-01-09 11:44] LABS: BILIRUBIN,TOTAL 0.5 mg/dL (0.2-1); TOT PROT 7.3 g/dl (6.4-8.2)
[2021-01-09 13:33] LABS: PLATELET COUNT 97 K/MM3 (134-434)
[2021-01-09] MEDS: hydrOXYzine PAMOATE 25 MG CAPSULE (FP) PO PRN ×2 (17:33→22:14)
[2021-01-09] MEDS: THIAMINE HCL 100 MG TABLET (FP) PO SCH (22:13)
[2021-01-09] MEDS: MELATONIN 5 MG TABLETS PO SCH (22:13)
[2021-01-10] MEDS ORDERED: diazePAM 5 MG TABLET PO ONE (06:00)
[2021-01-10 06:08] LABS: SARS-CoV-2 NAA Not Detected (Not Detected)
[2021-01-10 09:08] VITALS: BP 127/94; PULSE 81; TEMP 96.9
[2021-01-10] MEDS: PRENATAL VITAMINS W/ FOLIC ACID TABLET (FP) PO SCH (10:38)
== END 2021-01-10 09:30 | disposition home or self-care (01) | DRG 775 ==
LOC: YASAS 15:38 → Y3N 16:35
PROVIDERS: ADMIT Allergy & Immunology; ATTEND Allergy & Immunology
PROC: HZ2ZZZZ Detoxification Services for Substance Abuse Treatment (ICD-10-PCS; principal; 2021-01-06)
DX: F10.230 Alcohol dependence with withdrawal, uncomplicated (principal); F64.0 Transsexualism; G40.909 Epilepsy, unspecified, not intractable, without status epilepticus; K21.9 Gastro-esophageal reflux disease without esophagitis; I25.10 Atherosclerotic heart disease of native coronary artery without angina pectoris; I10 Essential (primary) hypertension; I25.2 Old myocardial infarction; R79.89 Other specified abnormal findings of blood chemistry; Z91.018 Allergy to other foods
CPT/HCPCS: 36415; 80053; 81025; 85027; 86780; C9803; Q0162; U0003; U0005